=== PATIENT | male | born 1965 | race Caucasian/White ===

== ENCOUNTER 2024-11-10 05:49 | Inpatient (IN) ==
--- NOTE | 2024-11-08 09:56 | Anesthesiology Consultation ---
Date of Service November 08, 2024 Assessment & Plan (1) Encounter for pre-operative examination: - check BSG and EKG STAT am DOS. - Per fish and game warden on 10/28/24: No known infectious disease contacts, current infectious disease symptoms in past 10 days or COVID positive test result in the past 30 days. Chart Review Chart Review: Acceptable Risk for Surgery and Patient NOT seen in Pre Admission Testing ASA ASA3 Proposed Anesthesia Anesthesia Type: General Risk / Benefits Reviewed With: PT / POA / Parent / Guardian, Accepts Plan and Informed Consent Obtained History Surgery Operation Date: 11/10/24 07:30 Proposed Procedures p Robotic Assisted Laparoscopic Radical Retropubic Prostatectomy, Possible Open, Possible Pelvic Lymph Node Dissection - Robin Ch MD Height/Weight Height: 5 ft 6.5 in Weight: 86.183 kg Allergies Allergy/AdvReac Type Severity Reaction Status Date / Time No Known Allergies Allergy Verified 11/10/24 05:56 Medications Home Medications Medication Instructions Recorded Confirmed Last Taken atorvastatin 40 mg tablet (Lipitor) 40 mg PO QAM 09/26/24 11/10/24 11/09/24 07:30 clopidogrel 75 mg tablet (Plavix) 75 mg PO QAM 09/26/24 11/10/24 10/27/24 empagliflozin 10 mg tablet 10 mg PO QAM 09/26/24 11/10/24 11/06/24 (Jardiance) lisinopril 10 mg tablet 10 mg PO QAM 09/26/24 11/10/24 11/09/24 07:30 metformin 1,000 mg tablet 1,000 mg PO BID 09/26/24 11/10/24 11/07/24 aspirin 81 mg tablet 81 mg PO QAM 10/28/24 11/10/24 10/27/24 multivitamin 2 tab PO QAM 10/28/24 11/10/24 10/27/24 Active Medications Generic Name Dose Route Start Last Admin Trade Name Freq PRN Reason Stop Dose Admin Heparin Sodium (Porcine) 5,000 units 11/10/24 06:00 11/10/24 06:29 Heparin Sod 5,000 Unit/0.5 Ml Vial SQ 11/10/24 18:00 5,000 units PREOP ZBIGNIEW Administration Lactated Ringer's 1,000 mls @ 15 mls/hr 11/10/24 06:00 11/10/24 06:39 Lr IV 11/11/24 05:59 15 mls/hr .Q24H ZBIGNIEW Administration Lactated Ringer's 1,000 mls @ 15 mls/hr 11/10/24 06:00 11/10/24 06:28 Lr IV 11/11/24 05:59 Not Given .Q24H ZBIGNIEW NPO Date Last Intake of Fluids: 11/10/24 Time Last Intake of Fluids: 00:00 Date Last Intake of Solids: 11/10/24 Time Last Intake of Solids: 00:00 Past Medical History Medical History Diabetes mellitus, type 2 oral Hairy cell leukemia, in remission 2015 - Chemo - [facility] History of stroke 2021? Left Sided Weakness - [facility] - residual numbness/weakness in left hand, no other residuals as per patient - Dismissed from neurology Prostate cancer Recently diagnosed - reason for 11/10/24 procedure Exercise / Class Metabolic Activity II 4-5 Yardwork/Stairs/Walk up hill Past Family History Family History Mother Diabetes Melanoma Brother Prostate cancer Hypertension Father Hypertension Grandfather Heart disease Past Surgical History Surgical History History of arthroscopy of knee Unsure of which side History of colonoscopy History of hernia repair x2 History of prostate biopsy Past Anesthesia History No Hx of Anesthesia Complications and No Family Hx of Anesthesia Complications History of PONV No Hx of PONV and No Hx of Motion Sickness Social History Smoking Status: Never smoker Do You Dip or Chew Tobacco: No Hx Alcohol Use: No alcohol intake frequency: 0-2 drinks per day Hx Substance Use: No substance use type: does not use Physical Exam Vital Signs Last Vital Signs Temp 37 C 11/10/24 06:21 Pulse 37 L 11/10/24 06:21 Resp 20 11/10/24 06:21 BP 128/71 11/10/24 06:21 Pulse Ox 96 11/10/24 06:21 O2 Del Method Room Air 11/10/24 06:21 Constitutional well developed and well nourished ENMT Mouth: no TMJ abnormality Thyromental Distance: > or= 3.5 Finger Breadths Mallampati Class: II Throat: uvula midline Neck trachea midline, no thyromegaly normal visual inspection Respiratory normal respiratory effort, lungs clear to auscultation Auscultation: lungs clear to auscultation bilaterally Cardiovascular Rate/Rhythm: regular rate and regular rhythm Gastrointestinal (Abdomen) normal bowel sounds, soft, nontender, no hepatosplenomegaly Psychiatric A+Ox3, euthymic affect Testing Laboratory Results Blood Type A Positive 11/10/24 05:56 Antibody Screen NEGATIVE 11/10/24 05:56 11/10/24 06:11 POC Glucose 272 H 10/13/24 WBC: 8.1 H/H: PLATELETS: 217,000 SODIUM: 132 POTASSIUM: 4.4 CHLORIDE: 101 CO2: 24 BUN: 30 CREATININE: 1.1 GLUCOSE: 333 Urine culture: no growth Chest X-Ray Date: 10/13/24 No significant interval change. No evidence for active disease. Other Testing PET scan 07/29/24 Mild patchy approximate L3 vertebral body tracer uptake which could be seen with degenerative changes or metastatic disease. Correlation with MRI lumbar spine exam with and without intravenous contrast material may be of further benefit. MRI lumbar spine 10/14/24 1.Advanced lumbar degenerative changes showing multilevel disc desiccation and bulges/protrusions with facet joint arthropathy, hypertrophy of ligamentum flavum and posterior osteophytes causing neural foraminal and lateral recesses stenosis resulting in radicular compression of varying degrees as described above. 2.Abnormal transverse signals in L2, L3, L5 and S1 vertebral bodies with minimal height reduction of L2. These may represent chronic mild compression fractures vs degenerative endplate changes. 3.Patchy post contrast enhancement is seen along the end plates of L2-L3 and L5-S1 levels associated with modic type I end plate changes. These findings are more in favor of degenerative disc disease as opposed to metastatic disease, would recommend clinical correlation. 4.No discrete enhancing lesion in the vertebral bodies, posterior vertebral elements or enhancing meningeal lesion identified in this examination.
[2024-11-10] MEDS: LACTATED RINGER'S 1,000 ML IV SCH ×2 (06:28→06:39)
[2024-11-10] MEDS: HEPARIN SOD 5,000 UNIT/0.5 ML VIAL SQ SCH ×2 (06:29→21:29)
[2024-11-10] MEDS ORDERED: fentaNYL citrate PF 100 MCG/2 ML VIAL ONE (06:52)
[2024-11-10] MEDS ORDERED: DEXAMETHASONE SOD INJ 4 MG/ML VIAL ONE (06:52)
[2024-11-10] MEDS ORDERED: ROCURONIUM BROMIDE 10 MG/ML 5 ML VIAL IV ONE ×2 (06:52→08:49)
[2024-11-10] MEDS ORDERED: SUGAMMADEX SODIUM 200 MG/2 ML VIAL IV ONE (06:52)
[2024-11-10] MEDS ORDERED: ONDANSETRON INJ 2 MG/ML 2 ML VIAL ONE (06:52)
[2024-11-10] MEDS ORDERED: PROPOFOL IV EMULSION 10 MG/ML 20 ML VIAL IV ONE (06:52)
[2024-11-10] MEDS ORDERED: MIDAZOLAM HCL 1 MG/ML 2ML VIAL ONE (06:52)
[2024-11-10] MEDS ORDERED: LIDOCAINE 2% 2 ML VIAL/AMP(20MG/ML) INFIL ONE (06:52)
[2024-11-10] MEDS ORDERED: GLYCOPYRROLATE 0.2 MG/ML VIAL ONE (07:01)
--- NOTE | 2024-11-10 07:11 | History & Physical Report ---
Date of Service November 10, 2024 Assessment & Plan (1) Prostate cancer: Plan: We reviewed the plan for robot-assisted laparoscopic radical prostatectomy and pelvic lymph dissection. We reviewed risks and benefits of surgery. He expressed understanding and would like to proceed with surgery. History of Present Illness Primary Care Provider: Malika DUC SAMANIEGO This is a 59-year-old male followed by urology for prostate cancer. Biopsy demonstrated grade group 2 disease. He presents the OR for robot-assisted radical prostatectomy and pelvic lymph node dissection. He denies any changes in his health. Allergies Allergy/AdvReac Type Severity Reaction Status Date / Time No Known Allergies Allergy Verified 11/10/24 05:56 Home Medications Medication Instructions Recorded Confirmed Type atorvastatin 40 mg tablet (Lipitor) 40 mg PO QAM 09/26/24 11/10/24 History clopidogrel 75 mg tablet (Plavix) 75 mg PO QAM 09/26/24 11/10/24 History empagliflozin 10 mg tablet 10 mg PO QAM 09/26/24 11/10/24 History (Jardiance) lisinopril 10 mg tablet 10 mg PO QAM 09/26/24 11/10/24 History metformin 1,000 mg tablet 1,000 mg PO BID 09/26/24 11/10/24 History aspirin 81 mg tablet 81 mg PO QAM 10/28/24 11/10/24 History multivitamin 2 tab PO QAM 10/28/24 11/10/24 History Past Med/Surg History Problem List Encounter for pre-operative examination Prostate cancer Medical History Diabetes mellitus, type 2 oral Hairy cell leukemia, in remission 2015 - Chemo - [facility] History of stroke 2021? Left Sided Weakness - [facility] - residual numbness/weakness in left hand, no other residuals as per patient - Dismissed from neurology Prostate cancer Recently diagnosed - reason for 11/10/24 procedure Surgical History History of arthroscopy of knee Unsure of which side History of colonoscopy History of hernia repair x2 History of prostate biopsy Family History Mother Diabetes Melanoma Brother Prostate cancer Hypertension Father Hypertension Grandfather Heart disease Social History Smoking Status: Never smoker Second Hand Exposure: No; Do You Dip or Chew Tobacco: No; Tobacco Cessation Education Requested by Patient: No Hx Alcohol Use: No Hx Substance Use: No Preferred Language: Gambian Communication Ability: Effective Electrical Assembly Supervisor Required: No Beliefs That Will Affect Care: None Current Living Situation: Spouse Other Information That Helps Us Care for You: No Feels Safe at Home: Yes Safety Concerns: Feels Safe At This Time Assistive Devices: Glasses Review of Systems 10 point review of systems negative except for otherwise indicated. Physical Exam Constitutional: well developed and well nourished; no acute distress Eyes: + anicteric sclerae; pupils not irregula r Respiratory: normal respiratory effort; no respiratory distress, does not use accessory muscles and no cough Cardiovascular: well perfused Gastrointestinal (Abdomen): Inspection/Auscultation: abdomen normal to inspection; abdomen not distended Musculoskeletal: Extremities: extremities normal to inspection Skin: normal turgor; no rashes and no lesions Neurologic: moves all extremities and awake Psychiatric: Orientation: alert and oriented x 3 Results & Data Vital Signs (Past 12 Hours) Vital Signs Temp Pulse Resp BP Pulse Ox O2 Del Method 11/10/24 06:21 37 C 37 L 20 128/71 96 Room Air
[2024-11-10] MEDS ORDERED: ePHEDrine sulfate 50 MG/ML AMP IV PRN (07:13)
[2024-11-10] MEDS ORDERED: ONDANSETRON INJ 2 MG/ML 2 ML VIAL IV PRN ×2 (07:13→12:30)
[2024-11-10] MEDS ORDERED: HYDROmorphone INJ 2 MG/ML SYR/VIAL IV PRN (07:13)
[2024-11-10] MEDS ORDERED: ATROPINE SULFATE 0.1 MG/ML 10ML SYR IV PRN (07:13)
[2024-11-10] MEDS: ceFAZolin 2000MG 2,000 MG/15 ML SYR IV SCH ×2 (07:47→14:04)
[2024-11-10] MEDS ORDERED: HYDROmorphone INJ 2 MG/ML SYR/VIAL ONE (08:44)
[2024-11-10] MEDS: NovoLIN-R INSULIN PER UNIT CHARGE ONE (10:53)
--- NOTE | 2024-11-10 11:18 | Operative Report ---
PG Post Operative Report Pre & Post Diagnosis Operation Date: 11/10/24 07:30 Pre-Op Diagnosis: Malignant Neoplasm of Prostate Post-Op Diagnosis: Malignant Neoplasm of Prostate I identified the patient and participated in the time-out.: Yes Procedure Operation Date: 11/10/24 07:30 Actual Procedures p Robotic Assisted Laparoscopic Prostatectomy, Pelvic Lymph Node Dissection - Robin Ch MD Surgeon Robin Ch MD Distribution Warehouse Manager LUIZ Garcia Estimated Blood Loss 50 Findings Consistent with Post-Op Diagnosis Specimens 1) periprostatic fat 2) right pelvic lymph nodes 3) left pelvic lymph nodes 4) prostate, vas deferens, seminal vesicles Drains Santizo catheter per urethra Anesthesia Type General Complications none Disposition Accompanied Patient To Recovery: Yes Disposition: Recovery Room Indications This is a 59-year-old male followed by urology for prostate cancer. He presented to the OR for robotic radical prostatectomy. Description of Procedure The patient was identified in the preoperative holding area and informed consent was confirmed. He was then brought to the operating room where general anesthesia was initiated. He was placed supine on the operating room table with all pressure points appropriately padded. His abdomen and genitalia were prepped and draped in the usual sterile fashion and a timeout was performed. A 2 cm incision was made above the umbilicus and then a Veress needle was used to obtain access to the abdomen. Proper position was confirmed with the drop test and low initial insufflation pressure. The abdomen was insufflated with CO2 to a pressure of 15 mmHg. An 8 mm robotic port was placed in the incision and the robotic camera was inserted. The abdominal cavity was surveyed, demonstrating no injury to intra-abdominal contents. The remaining robotic ports were placed under direct visualization, with 2 robotic ports on the left side and 1 robotic port on the right. A 12 mm medical technician assistant port was placed on the right side as well, and a 5 mm medical technician assistant port was placed in the right upper quadrant. The robot was then docked. There were minimal sigmoid adhesions in the left lower quadrant which were divided sharply. Using electrocautery, the bladder was then dropped from the anterior wall of the abdomen, exposing the space of Retzius. This dissection was carried down to expose the pelvic brim and subsequently the anterior surface of the prostate and the endopelvic fascia. The fat overlying the anterior of the prostate was removed and sent for pathologic analysis, labeled as 'periprostatic fat'. The endopelvic fascia was then divided on each side to expose the lateral aspects of the prostate and the lateral aspects of the pedicles. There is seem to be some inflammation bilaterally causing the tissues to be somewhat "sticky" behind the endopelvic fascia. A single 3-0 V-Loc suture was used to ligate the dorsal venous complex to prevent backbleeding in subsequent steps. The fourth arm of the robot was then used to put some gentle traction on the bladder, and the bladder neck was identified. Using electrocautery, the ant erior bladder neck was dissected to expose the Santizo catheter, whose tip was removed from the bladder and held anteriorly. The posterior bladder neck dissection was then completed. At this point bilateral vas deferens were exposed and isolated. The vas deferens were cauterized and then divided. Bilateral seminal vesicles were dissected out as well. Denonvilliers fascia was then divided and the posterior prostate dissection was carried up as far as possible toward the urethra. The pedicles were then divided using combination of clips and sharp dissection, trying to use minimal electrocautery. On the right side, a partial nerve sparing approach was used. On the left side, a partial nerve sparing approach was used. Attention was turned anteriorly and the dorsal venous complex was divided using sharp dissection and electrocautery. The urethra was isolated and then divided sharply. At this point, the prostate was free and was placed in a specimen bag. Bilateral pelvic lymph node dissection was then performed, and the srikanth tissue was sent for pathologic analysis. The pelvis was inspected and meticulous hemostasis was ensured. Double-armed V- Loc suture was then used to re-anastomose the bladder neck with the urethra. Once this was complete, the anastomosis was tested by instilling 120 mL of normal saline into the bladder. Satisfied that the anastomosis was watertight, the catheter balloon was inflated with 10 mL of normal saline. The robot was then undocked. The supraumbilical incision was extended and the prostate was extracted. 0 Vicryl suture was then used to close the fascia at this incision. Incisions were anesthetized using 0.5% Marcaine. All skin incisions were closed with 4-0 Monocryl suture and then a layer of Dermabond was applied. The patient was then awakened from anesthesia and was brought to the PACU in stable condition. LIUZ Garcia acted as the bedside medical technician assistant for the duration of the case. She assisted with gaining access, providing retraction and suction. Passing in sutures and applying clips as needed. She also helped with specimen extraction and closing. I attest to the content of the Intraoperative Record and any orders documented therein. Any exceptions are noted below.
--- NOTE | 2024-11-10 12:12 | Anesthesiology Progress Note ---
Date of Service November 10, 2024 Anesthesia Post Procedure Vital Signs Vital Signs: Temp Pulse Resp BP Pulse Ox O2 Del Method O2 Flow Rate 11/10/24 12:05 72 12 133/73 92 Nasal Cannula 4 11/10/24 11:55 70 12 134/72 92 Nasal Cannula 4 11/10/24 11:45 87 12 134/74 96 Oxymask 6 11/10/24 11:35 84 12 142/69 H 94 Oxymask 6 11/10/24 11:25 93 H 16 136/78 95 Oxymask 6 11/10/24 11:17 36.0 C L 86 16 139/90 95 Oxymask 8 11/10/24 06:21 37 C 83 20 128/71 96 Room Air Transfer of Care Handoff Completed per policy Notes Mental Status: alert / awake / arousable Patient Amnestic to Procedure: Yes Nausea / Vomiting: adequately controlled Pain: adequately controlled Airway Patency, RR, SpO2: stable & adequate BP & HR: stable & adequate Hydration State: stable & adequate Anesthetic Complications: no major complications apparent and Pt Satisfied with anesthetic care
[2024-11-10] MEDS ORDERED: oxyCODONE HCL IR 5 MG TAB (IMMEDIATE RELEASE) PO PRN ×2 (12:30)
[2024-11-10] MEDS ORDERED: MoRPHine SULFATE 2 MG/ML CARP IV PRN ×2 (12:30)
[2024-11-10] MEDS ORDERED: PHARMACY GLYCEMIC MGMT CONSULT PRN (12:30)
[2024-11-10] MEDS ORDERED: GLUCOSE 40% GEL 15 GM TUBE PO PRN (12:45)
[2024-11-10] MEDS ORDERED: CARBOHYDRATES FOR HYPOGLYCEMIA PO PRN (12:45)
[2024-11-10] MEDS ORDERED: GLUCAGON FOR INJ 1 MG VIAL SQ PRN (12:45)
[2024-11-10] MEDS ORDERED: GLUCOSE 10 TAB/TUBE PO PRN (12:45)
[2024-11-10] MEDS ORDERED: DEXTROSE 50% 50 ML SYRINGE IV PRN (12:45)
[2024-11-10] MEDS ORDERED: LANTUS PER UNIT CHARGE SC SCH ×2 (13:00→13:30)
[2024-11-10] MEDS: BUPIVACAINE 0.5 % 5 MG/1 ML MPF 30ML VIAL ONE (13:26)
--- NOTE | 2024-11-10 13:37 | Pharmacy Report ---
Pharmacy Glycemic Short Note 2 - Date of Service November 10, 2024 - Glycemic Short BSG Results (Last 24 hours): 11/10/24 11/10/24 11/10/24 06:11 10:37 10:40 POC Glucose 272 H 390 H* 372 H* 11/10/24 11/10/24 11/10/24 11:22 12:23 12:24 POC Glucose 325 H* 391 H* 389 H* OUTPATIENT ANTIDIABETIC REGIMEN: * empagliflozin 10mg po daily * metformin 1000mg BID HbA1c ordered for tomorrow with morning labs ASSESSMENT: * Shelton is a 59 year old male admitted today for a prostatectomy (POD# 0). Pharmacy has been consulted for glycemic management postop. * BSG preop was 272mg/dL and postop was 390mg/dL. He received dexamethasone 8mg iv x 1 preop. Patient did receive 10units regular insulin IV x 1 at 1053. BSG still > 300mg/dL at lunch time so Lantus 30 units SQ x 1 was ordered (~0.4units/kg) and a weight based bolus insulin regimen with a stress of 3 was started. PLAN FOR INPATIENT GLYCEMIC CONTROL: * Hold outpatient oral diabetes medications * Basal insulin * Lantus 30 units SQ x 1, will reassess additional need tomorrow morning. * Bolus insulin * NovoLog per scale ACHS or Q6hrs while NPO * Goal Range: Low 110 mg/dL - High 140 mg/dL * Correction Factor: 20 mg/dL/unit * Nutritional / Prandial insulin per carb ratio of 1 unit per 6 grams CHO consumed
[2024-11-10] MEDS: SODIUM CHLORIDE 0.9% 1,000 ML IV SCH (13:57)
[2024-11-10] MEDS: LANTUS PER UNIT CHARGE SC ONE (14:02)
[2024-11-10] MEDS: INSULIN ASPART PER UNIT CHARGE SC SCH (14:02)
[2024-11-10] MEDS: ACETAMINOPHEN 325 MG TAB PO SCH (14:34)
[2024-11-10] MEDS: DOCUSATE SODIUM 100 MG CAP PO SCH (21:30)
[2024-11-10 23:25] VITALS: RESP 18
[2024-11-11 07:25] LABS: Basophils # (auto) 0.02 K/uL (0.00-0.20); Basophils % (auto) 0.1 %; Eosinophils # (auto) 0.06 K/uL (0.00-0.50); Eosinophils % (auto) 0.4 %; Hematocrit (blood only) 36.5 % (42.0-52.0); Hemoglobin 12.2 g/dl (14.0-18.0); Immature Granulocytes # (auto) 0.05 K/uL (0.01-0.20); Immature Granulocytes % (auto) 0.4 %; Lymphocytes # (auto) 2.34 K/uL (1.20-3.40); Mean Corpuscular Hemoglobin 29.5 pg (25.0-34.0); Mean Corpuscular Hgb Conc 33.4 g/dL (32.0-36.0); Mean Corpuscular Volume 88.2 fL (80.0-100.0); Mean Platelet Volume 10.5 fL (9.4-12.4); Monocytes # (auto) 1.34 K/uL (0.11-0.59); Monocytes % (auto) 9.7 %; Neutrophils # (auto) 9.99 K/uL (1.40-6.50); Neutrophils % (auto) 72.4 %; Platelet Count 191 K/uL (130-400); RDW Coefficient of Variation 12.5 % (11.5-14.5); RDW Standard Deviation 40.1 fL (36.4-46.3); Red Blood Count 4.14 M/uL (4.70-6.10)
[2024-11-11 07:40] LABS: BUN Creatinine Ratio 17.1 (10-20); Calcium 8.4 mg/dl (8.6-10.3); Creatinine Clr Calc Pharmacy 70.8 ml/min; Potassium 4.1 mmol/L (3.5-5.1)
[2024-11-11 07:53] VITALS: BP 121/75; PULSE 69; TEMP 97.7; O2SAT 97
[2024-11-11 08:32] LABS: Estimated Average Glucose 263 mg/dl; Hemoglobin A1C 10.8 % (4.5-5.6)
[2024-11-11] MEDS: lisinopril 10 MG TAB PO SCH (08:55)
[2024-11-11] MEDS: ATORVASTATIN 40 MG TAB PO SCH (08:55)
--- NOTE | 2024-11-11 09:45 | Urology Progress Note ---
Date of Service November 11, 2024 Assessment & Plan (1) Prostate cancer: Plan Postop day #1 status post robotic prostatectomy with Dr. Ch Feeling well, progressing as expected He is afebrile and hemodynamically stable Labs today show WBCs 13.8, hemoglobin 12.2, creatinine 1.17 Santizo catheter draining appropriately-urine is clear yellow Incisions appropriate Patient is stable for discharge home today with Santizo catheter Discharge instructions reviewed, all questions were answered Will arrange appropriate postoperative follow-up Admission and Anticipated Discharge Date Admission Date: November 10, 2024 Subjective Patient seen at bedside this morning Awake and resting in bed on arrival No acute distress Feeling well overall Reports minimal pain Has ambulated without issue Santizo draining clear yellow urine Tolerating diet Denies fever, chills, nausea, vomiting +Flatus Review of Systems Constitutional: as per Subjective / HPI Gastrointestinal: as per Subjective / HPI Genitourinary: + as per Subjective / HPI Physical Exam Constitutional: no acute distress Respiratory: no respiratory distress and no labored breathing Gastrointestinal (Abdomen): Incisions appropriate, Dermabond intact Musculoskeletal: Head/Neck/Chest: normocephalic Skin: No visible rashes or lesions to exposed skin areas Neurologic: moves all extremities and awake Psychiatric: A+Ox3, euthymic affect Genitourinary: Santizo draining clear yellow urine Results & Data Vital Signs (Past 12 Hours) Vital Signs Temp Pulse Resp BP Pulse Ox O2 Del Method 11/11/24 07:52 36.5 C 69 18 121/75 97 Room Air 11/11/24 03:34 36.6 C 70 18 120/69 94 Room Air 11/10/24 23:24 36.8 C 86 18 118/60 97 Room Air PG Care Time/CCT Total # of Minutes Spent Total Time Spent with Patient: Total time spent is greater than 50% in coordination of care (as documented) at patient's floor/unit and/or counseling patient: Coding Level of Care Code None Diagnoses Prostate cancer C61
--- NOTE | 2024-11-11 11:17 | Discharge Summary ---
Date of Service November 11, 2024 Admission HPI Per Admitting Provider This is a 59-year-old male followed by urology for prostate cancer. Biopsy demonstrated grade group 2 disease. He presents the OR for robot-assisted radical prostatectomy and pelvic lymph node dissection. He denies any changes in his health. Admission Exam Per Admitting Provider Constitutional: well developed and well nourished; no acute distress Eyes: + anicteric sclerae; pupils not irregula r Respiratory: normal respiratory effort; no respiratory distress, does not use accessory muscles and no cough Cardiovascular: well perfused Gastrointestinal (Abdomen): Inspection/Auscultation: abdomen normal to inspection; abdomen not distended Musculoskeletal: Extremities: extremities normal to inspection Skin: normal turgor; no rashes and no lesions Neurologic: moves all extremities and awake Psychiatric: Orientation: alert and oriented x 3 Principal Diagnosis Prostate cancer Discharge Exam Constitutional well developed and well nourished; no acute distress Respiratory normal respiratory effort; no respiratory distress and no labored breathing Gastrointestinal (Abdomen) Incisions appropriate, Dermabond intact Musculoskeletal Head/Neck/Chest: normocephalic Skin no rashes, warm and dry Neurologic moves all extremities and awake Psychiatric A+Ox3, euthymic affect Genitourinary Han draining clear yellow urine Discharge Data Allergies Allergy/AdvReac Type Severity Reaction Status Date / Time No Known Allergies Allergy Verified 11/10/24 05:56 Procedures Performed Operation Date: 11/10/24 07:30 Actual Procedures p Robotic Assisted Laparoscopic Prostatectomy, Pelvic Lymph Node Dissection(Not Applicable) - Robin Ch MD Diabetes Follow up Diabetes Follow-up Needed for HgbA1c >9% Hospital Course (1) Prostate cancer: Plan 59-year-old male admitted status post robotic prostatectomy with Dr. Ch. Patient tolerated procedure well. No acute issues postoperatively. He remained afebrile and hemodynamically stable. Labs were appropriate. He tolerated a diet. Ambulated without issue. Reported minimal pain. Han catheter with good output and urine was clear yellow. Incisions were appropriate. Patient was discharged home on postop day #1 with a Han catheter in place. He was in stable condition at time of discharge. Discharge instructions were reviewed and all questions were answered. Total Time Total Time Spent Total Time Spent (In Minutes): 15 Discharge Plan Discharge Items Patient Disposition: Home - Self-Care Reason For Visit: Malignant Neoplasm of Prostate Discharge Diagnosis: Prostate cancer Condition on Discharge: Good Activity: Per Instructions section Lifting: No more than 10 pounds Non-emergency contact: Urologist Call non-emergency contact if: you have any medication questions, your pain is not controlled, your pain is worsening, your pain is unusual for you, your tem perature is above 101, your wound has increased redness, your wound has increased drainage and your wound pain has increased Follow-up/Referrals: Malika SAMANIEGO [Other] Robin Ch MD [Physician] - Diet: Carb Consistent or DM2 Addtl Attending Provider Instructions: The surgery you had was: Robot-assisted radical prostatectomy with bilateral pelvic lymph node dissection. Please take all medications as prescribed and keep all follow-ups as scheduled. Please call our office at [phone] with any questions, concerns or need to reschedule appointments for any reason. We are happy to assist you Medications: Please take all medications as prescribed. For pain control, you can take tylenol every 6 hours. You can also take ibuprofen every 6 hours. If you have been prescribed a narcotic pain medication, please take this according to the instructions on the label. You have been prescribed a single dose of antibiotics (Bactrim) to be taken 1 hour prior to your appointment for han catheter removal. Activity: We recommend having someone with you for the first few days after surgery to help care for you. For the first 2 weeks after surgery, we would like you to get up and walk around your house. However, we recommend limit physical activity that would increase your heart rate. This will allow your body to rest and heal. Take naps if you feel tired. Don't lift anything heavier than 10 pounds, mow the law or ride a bicycle until your follow-up appointment. Please avoid long car rides. Home Care: Unless directed otherwise, drink 6 to 8 glasses of water a day (enough to keep your urine light colored). This will also help keep a healthy flow of urine. We recommend using a stool softener such as colace or miralax for the first two weeks to avoid constipation. Han Catheter care: Keep the catheter well secured with either a leg back or leg strap with large bag. Empty your bag when it's about half full. You may notice some blood in the bag. This is normal after surgery and while the catheter is in place. Use mild soap (such as Dove or Dial) and water to wash the catheter and the head of your penis daily, or more frequently if needed. Return to your normal diet, we encourage good protein intake to promote healing. You may shower as normal. Please avoid tub baths or soaking until catheter removed and incisions well healed. Wearing sweat pants while you have the catheter is recommended, they will be more comfortable. Follow-up We will have you come to the office in approximately 7 days for catheter removal. - Please remember to take your dose on antibiotics 1 hour prior to this appointment. We will review pathology results at that appointment and discuss further followup. Call [facility] at [phone] right away if you have any of the following: Chest pain or trouble breathing (call 011 or go to the hospital) Fever of 101F or higher, uncontrolled vomiting Heavy bleeding, clots, or bright red blood from the catheter Catheter that falls out or stops draining Foul-smelling discharge from your catheter Redness, swelling, warmth, or increased pain at your incision site Drainage, pus, or bleeding from your incision Pending Studies at Discharge: No Stand-Alone Forms: My [facility], Smoking Cessation Medications and DC Order Prescriptions: New sulfamethoxazole-trimethoprim [Bactrim DS] 800-160 mg tablet 1 tab PO ONCE 1 Days Qty: 1 0RF docusate sodium [Colace] 100 mg capsule 100 mg PO BID Qty: 20 0RF Continued metformin 1,000 mg tablet 1,000 mg PO BID atorvastatin [Lipitor] 40 mg tablet 40 mg PO QAM Jardiance 10 mg tablet 10 mg PO QAM clopidogrel [Plavix] 75 mg tablet 75 mg PO QAM lisinopril 10 mg tablet 10 mg PO QAM multivitamin Tablet 2 tab PO QAM aspirin 81 mg Tablet 81 mg PO QAM Discharge Orders: Discharge Order (Routine); Ordered 11/11/24 Ordered By: Cristela Hall/Other Patient Handouts: High Blood Sugar (Hyperglycemia), Managing Type 2 Diabetes, Indwelling Urinary Catheter Dc, Leg Bag Care Dc Admission Data Admit Date/Time: 11/10/24 11:18 Attending Provider: Robin Ch Admit Provider: Robin Ch Primary Care Provider: Pedro Leon Other Interventions: Discharge Summary Assessment (RN) Last Done: 11/11/24 10:17 Coding Level of Care Code 18691 IN/OBS DISCH 30 MIN/LESS Diagnoses Prostate cancer C61
--- NOTE | 2024-11-11 15:00 | Electrocardiogram Report ---
Test Reason : Blood Pressure : */* mmHG Vent. Rate : 81 BPM Atrial Rate : 81 BPM P-R Int : 178 ms QRS Dur : 90 ms QT Int : 392 ms P-R-T Axes : 59 9 2 degrees QTcB Int : 455 ms Normal sinus rhythm Normal ECG No previous ECGs available Confirmed by Jamar Jackson ([id number]) on 11/11/2024 3:00:23 PM Referred By: Robin Ch Confirmed By: Jamar Jackson
== END 2024-11-11 11:06 | disposition home or self-care (01) | DRG 708 ==
LOC: ASU 05:49 → 3W 11:18